=== PATIENT | male | born 1980 | race Two or more races ===

== ENCOUNTER 2018-08-21 08:55 | Emergency (ER) | payer SELFPAY ==
[~2018-08-21] VITALS: Ht 157.5 cm; Wt 91.2 kg
[2018-08-21 09:40] VITALS: BP 130/85
[2018-08-21 09:42] VITALS: BP 130/85
--- NOTE | 2018-08-21 09:51 | Emergency Room Report ---
History of Present Illness General Chief Complaint: Dizziness Source: Patient Present Illness HPI 37-year-old male presents ED for evaluation. States that starting this morning he felt weak and dizzy, nausea with body aches. Pain is dull, 7 out of 10, nonradiating. Denies sore throat or cough. Denies ear ache. Denies fevers or chills. Denies sick contacts or recent travel. No other aggravating relieving factors. Denies any other associated symptoms Allergies: Coded Allergies: No Known Allergies (Unverified , 08/21/18) Patient History Past Medical History: none Past Surgical History: none Pertinent Family History: none Social History: Denies: smoking, alcohol use, drug use Immunizations: UTD Reviewed Nursing Documentation: PMH: Agreed; PSxH: Agreed Nursing Documentation-PMH Past Medical History: No Stated History Review of Systems All Other Systems: negative except mentioned in HPI Physical Exam Vital Signs Date Time Temp Pulse Resp B/P (MAP) Pulse Ox O2 Delivery O2 Flow Rate FiO2 08/21/18 08:59 98.3 78 18 131/87 95 Room Air 98.2 Sp02 EP Interpretation: reviewed, normal General Appearance: no apparent distress, alert, GCS 15, non-toxic Head: normocephalic, atraumatic Eyes: bilateral eye normal inspection, bilateral eye PERRL ENT: hearing grossly normal, normal pharynx, no angioedema, normal voice Neck: full range of motion, supple/symm/no masses Respiratory: chest non-tender, lungs clear, normal breath sounds, speaking full sentences Cardiovascular #1: regular rate, rhythm, no edema Cardiovascular #2: 2+ carotid (R), 2+ carotid (L), 2+ radial (R), 2+ radial (L) , 2+ dorsalis pedis (R), 2+ dorsalis pedis (L) Gastrointestinal: normal bowel sounds, non tender, soft, non-distended, no guarding, no rebound Rectal: deferred Genitourinary: normal inspection, no CVA tenderness Musculoskeletal: back normal, gait/station normal, normal range of motion, non- tender Neurologic: alert, oriented x3, responsive, motor strength/tone normal, sensory intact, speech normal Psychiatric: judgement/insight normal, memory normal, mood/affect normal, no suicidal/homicidal ideation Reflexes: 3+ bicep (R), 3+ bicep (L), 3+ tricep (R), 3+ tricep (L), 3+ knee (R) , 3+ knee (L) Skin: normal color, no rash, warm/dry, well hydrated Lymphatic: no adenopathy Medical Decision Making Diagnostic Impression: Primary Impression: Episode of generalized weakness ER Course Hospital Course 37-year-old M presents to ED complaining of bodyaches, headaches, dizziness Differential diagnoses include: URI, pharyngitis, otitis media, influenza Clinical course Patient placed on stretcher. After initial history, physical exam reveals male in no acute distress. Head and neck exam unremarkable. Lungs clear. Abdomen soft. Remainder physical exam unremarkable EKGnormal sinus rhythm no acute ischemic changes interpreted by me Accu-Chek within normal limits Vital stable here. Patient appears nontoxic, afebrile. Not in distress. Likely viral versus lack of sleep. Patient wakes up every morning at 4 AM for work states he does not get a good night's sleep. I also recommended to patient that he received a flu vaccine via his PMD Patient is safe for discharge and close outpatient follow-up Diagnosis - episode of generalized weakness Stable and discharged home. drink plenty of fluids, rest. Instructed to followup with PMD. Return to ED if symptoms recur or worsen EKG Diagnostic Results Rate: normal Rhythm: NSR ST Segments: no acute changes ASA given to the pt in ED: No Rhythm Strip Diag. Results EP Interpretation: yes Rhythm: NSR, no PVC's, no ectopy Last Vital Signs Date Time Temp Pulse Resp B/P (MAP) Pulse Ox O2 Delivery O2 Flow Rate FiO2 08/21/18 09:42 98.2 76 18 130/85 95 Room Air 98.2 Status: improved Disposition: HOME, SELF-CARE Condition: Stable Scripts No Active Prescriptions or Reported Meds Referrals: [facility] Departure Forms: Return to Work Return to Work Date: Aug 23, 2018 Work Restrictions: None Patient Instructions: Viral Respiratory Infection, Cjyx-Ls-Rlui Yousif Lin MD Aug 21, 2018 09:51
--- NOTE | 2018-08-22 13:25 | Cardiology Report ---
APPROVED REPORT EKG Measurement Heart [id number] Normal sinus rhythm Low voltage QRS Borderline ECG
== END 2018-08-21 09:59 | disposition home or self-care (01) ==
LOC: EMR 09:24
DX: R53.1 Weakness (principal)
CPT/HCPCS: 82962; 93005; 99283